=== PATIENT | female | born 1950 | race Caucasian/White ===

== ENCOUNTER 2018-12-28 09:25 | Outpatient (CLI) | payer BC ==
--- NOTE | 2018-12-28 12:00 | RAD ---
BARIUM SWALLOW ESOPHAGRAM DOUBLE CONTRAST: DATE: 12/28/2018. HISTORY: A 68-year-old female with R13.10, dysphagia, unspecified type. TECHNIQUE: Upright administration of effervescent granules, thick liquid barium, and barium tablet with straw. Prone BLANK straw administration of thin liquid barium. Fluoroscopy time 2.4 minutes. Dose area product 4.66 Gy*cm^2. TECHNIQUE: Milking System Installer view of the chest demonstrates no abnormality. There is silent penetration, but no aspiration. There is significant residue in the vallecula and piriform sinuses, with only partial clearing afte r prompted repeat swallow. The barium tablet becomes temporarily lodged at the esophagogastric juncti on for a few minutes. It eventually passes into the stomach during the prone BLANK thin liquid barium swallowing. Immediate, prominent gastroesophageal reflux is visualized. Minimal sliding hiatal andrew ia. The rest of the esophagus has normal motility, distensibility, and mucosal pattern. IMPRESSION: 1. 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 2. Prominent gastroesophageal reflux. 3. Oropharyngeal residue with incomplete clearance. 4. Silent penetration at larynx. POS: LIANET
== END 2018-12-28 09:26 | disposition home or self-care (01) ==
LOC: RAD 09:25
PROVIDERS: ATTEND Family Medicine
DX: R13.10 Dysphagia, unspecified (principal); K21.9 Gastro-esophageal reflux disease without esophagitis; K22.2 Esophageal obstruction
CPT/HCPCS: 74220

== ENCOUNTER 2023-07-07 14:26 | Outpatient (CLI) | payer MEDICARE | END 2023-07-07 14:27 | disposition home or self-care (01) | LOC: SCSRAD 14:26 | PROVIDERS: ATTEND Family Medicine | DX: M79.672 Pain in left foot (principal); S92.492D Other fracture of left great toe, subsequent encounter for fracture with routine healing ==